=== PATIENT | male | born 1995 | race American Indian/Alaskan Native ===

== ENCOUNTER 2021-08-07 09:41 | Emergency (ER) | payer OTHER ==
[2021-08-07 10:05] VITALS: BP 156/79
--- NOTE | 2021-08-07 11:13 | Emergency Department Report ---
ED General Adult HPI - General Chief complaint: Pain General Stated complaint: NERVE PAIN/COLLAR BONE TO BACK OF HEAD Time Seen by Provider: 08/07/21 11:09 Source: patient Mode of arrival: Ambulatory Limitations: No Limitations - History of Present Illness MD Complaint: Here for blood work -: days(s) - Related Data Allergies Allergy/AdvReac Type Severity Reaction Status Date / Time No Known Allergies Allergy Verified 08/07/21 10:01 ED Review of Systems ROS: Stated complaint: NERVE PAIN/COLLAR BONE TO BACK OF HEAD Other details as noted in HPI ED Past Medical Hx - Past Medical History Previous Medical History?: No - Surgical History Past Surgical History?: No ED Physical Exam - General Limitations: No Limitations ED Course Vital Signs 08/07/21 10:02 Temperature 98.1 F Pulse Rate 84 Respiratory 18 Rate Blood Pressure 156/79 O2 Sat by Pulse 97 Oximetry Critical care attestation.: If time is entered above; I have spent that time in minutes in the direct care of this critically ill patient, excluding procedure time. ED Disposition Condition: Stable
--- NOTE | 2021-08-07 11:43 | Emergency Department Report ---
ED Extremity Problem HPI - General Chief complaint: Pain General Stated complaint: NERVE PAIN/COLLAR BONE TO BACK OF HEAD Time Seen by Provider: 08/07/21 11:09 Source: patient Mode of arrival: Ambulatory Limitations: No Limitations - History of Present Illness Initial comments: 26-year-old male who denies any significant past medical history presents to the ER today with complaints of "nerve pain". Patient states that the pain starts in his left clavicular and radiates up into his left neck. Patient states that he notices pain seems to worsen when he moves his neck and left arm in certain positions. He denies any injury. 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 He has not taken anything for the pain. He denies any prior injury or issues with his clavicle in the past. He reports no numbness, tingling, weakness, chest pain or shortness of breath or any additional symptoms at this time MD Complaint: other (Left clavicle pain, left neck pain ) -: Gradual, days(s) (4) - Related Data Previous Rx's Medication Instructions Recorded Last Taken Type Ketorolac [Toradol] 10 mg PO Q6H PRN #20 tablet 08/07/21 Unknown Rx Lidocaine [Lidoderm] 1 each TP Q12HR #10 adh..patch 08/07/21 Unknown Rx Allergies Allergy/AdvReac Type Severity Reaction Status Date / Time No Known Allergies Allergy Verified 08/07/21 10:01 ED Review of Systems ROS: Stated complaint: NERVE PAIN/COLLAR BONE TO BACK OF HEAD Other details as noted in HPI Comment: All other systems reviewed and negative Constitutional: denies: chills, fever Eyes: denies: eye pain, eye discharge, vision change ENT: denies: ear pain, throat pain Respiratory: denies: cough, shortness of breath, wheezing Cardiovascular: denies: chest pain, palpitations Gastrointestinal: denies: abdominal pain, nausea, vomiting, diarrhea, constipation, hematemesis, melena Genitourinary: denies: urgency, dysuria Musculoskeletal: arthralgia. denies: back pain, joint swelling Skin: denies: rash, lesions Neurological: denies: headache, weakness, numbness, paresthesias, confusion, abnormal gait, vertigo Psychiatric: denies: anxiety, depression, auditory hallucinations, visual hallucinations, homicidal thoughts, suicidal thoughts Hematological/Lymphatic: denies: easy bleeding, easy bruising, swollen glands ED Past Medical Hx - Past Medical History Previous Medical History?: No - Surgical History Past Surgical History?: No - Medications Home Medications: Home Medications Medication Instructions Recorded Confirmed Last Taken Type Ketorolac [Toradol] 10 mg PO Q6H PRN #20 tablet 08/07/21 Unknown Rx Lidocaine [Lidoderm] 1 each TP Q12HR #10 adh..patch 08/07/21 Unknown Rx ED Physical Exam - General Limitations: No Limitations General appearance: alert, in no apparent distress - Head Head exam: Present: atraumatic, normocephalic, normal inspection - Eye Eye exam: Present: normal appearance, PERRL, EOMI Pupils: Present: normal accommodation - Neck Neck exam: Present: normal inspection, full ROM. Absent: tenderness, meningismus - Respiratory Respiratory exam: Present: normal lung sounds bilaterally. Absent: respiratory distress, wheezes, rales, rhonchi, stridor - Cardiovascular Cardiovascular Exam: Present: regular rate, normal rhythm, normal heart sounds - Extremities Exam Extremities exam: Present: normal inspection, full ROM, tenderness (mild ttp left Sternoclavicular joint ), normal capillary refill - Expanded Upper Extremity Exam Left Shoulder Exam: Present: normal inspection, full ROM, tenderness (mild mainly left sternoclavicular joint with associated mild swelling when compared to the right. No bruising no deformity or crepitus noted.), swelling. Absent: abrasion, laceration, ecchymosis, deformity, crepidus, dislocation, erythema, tenderness over AC joint Neuro motor exam: Present: wrist extension intact, thumb opposition intact, thumb IP flexion intact, thumb adduction intact Neurosensory exam: Present: radial nerve intact, ulnar nerve intact, median nerve intact Vascular: Present: normal capillary refill. Absent: vascular compromise - Neurological Exam Neurological exam: Present: alert, oriented X3, CN II-XII intact, normal gait - Psychiatric Psychiatric exam: Present: normal affect, normal mood - Skin Skin exam: Present: intact ED Course Vital Signs 08/07/21 10:02 Temperature 98.1 F Pulse Rate 84 Respiratory 18 Rate Blood Pressure 156/79 O2 Sat by Pulse 97 Oximetry ED Medical Decision Making - Radiology Data Radiology results: report reviewed Patient: RUBY BUCK MR#: [id number] : 1995 Acct:[id number] Age/Sex: 26 / M ADM Date: 08/07/21 Loc: ED Attending Dr: Ordering Physician: LAXMI W[place] Date of Service: 08/07/21 Procedure(s): XR clavicle LT Accession Number(s): [id number] cc: LAXMI W[place] Fluoro Time In Minutes: Left clavicle radiograph, 2 views HISTORY: Left clavicle pain COMPARISON: None FINDINGS: No acute fracture or malalignment. 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 No focal soft tissue abnormality. IMPRESSION: No acute process. Signer Name: Maye Cooney MD Signed: 08/07/2021 12:17 PM Workstation Name: [id number] Transcribed By: MIGUEL Dictated By: MAYE COONEY MD Electronically Authenticated By: MAYE COONEY MD Signed Date/Time: 08/07/211216 DD/ 16 TD/TT: Critical care attestation.: If time is entered above; I have spent that time in minutes in the direct care of this critically ill patient, excluding procedure time. ED Disposition Clinical Impression: Sternoclavicular joint pain Disposition: 01 HOME / SELF CARE / HOMELESS Is pt being admited?: No Does the pt Need Aspirin: No Condition: Stable Instructions: Joint Pain, [id number] Additional Instructions: Recommend that you take the Toradol as prescribed to help with the pain. Use the Lidoderm patches as prescribed to also help with pain. You can apply ice over the area to help with additional pain control and swelling. Recommend l imiting the movement of your left upper arm for the next 2 to 3 days. Follow-up with the learning disabilities specialist listed on your discharge instructions if symptoms persist. Return to the ER symptoms changes or worsens in any way Prescriptions: Lidocaine [Lidoderm] 1 each TP Q12HR #10 adh..patch Ketorolac [Toradol] 10 mg PO Q6H PRN #20 tablet PRN Reason: Pain Referrals: WILMA BLAND MD [Staff Physician] - 3-5 Days [id number] SILVERIO MD [Staff Physician] - 3-5 Days Forms: Work/School Release Form(ED) Time of Disposition: 12:35
[2021-08-07] MEDS ORDERED: KETOROLAC 10 MG TAB PO ONE (11:44)
--- NOTE | 2021-08-07 12:22 | XRay Report ---
Left clavicle radiograph, 2 views HISTORY: Left clavicle pain COMPARISON: None FINDINGS: No acute fracture or malalignment. 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 No foc al soft tissue abnormality. IMPRESSION: No acute process. Signer Name: Randolph Cooney MD Signed: 08/07/2021 12:17 PM Workstation Name: [id number]
== END 2021-08-07 13:02 | disposition home or self-care (01) ==
LOC: ED 09:41
DX: M54.2 Cervicalgia (principal); Z79.899 Other long term (current) drug therapy
CPT/HCPCS: 99283